=== PATIENT | female | born 1970 | race Hispanic/Latino ===

== ENCOUNTER 2016-12-19 10:16 | Emergency (ER) | payer OTHER ==
[~2016-12-19] VITALS: Ht 167.6 cm; Wt 113.9 kg
[~2016-12-19 10:16] MED LIST: ASCORBIC ACID500 M3 PO; COZAAR100 MG PO; ENDOCET 5-3251 EACH PO; HYZAAR 100-21 TABLET PO; LISINOPRIL-HCT1 EAC3 PO; MOTRIN600 MG PO; MOTRIN800 MG PO; TYLENOL EXTRA500 MG PO; VITAMIN E100 UNIT PO
[2016-12-19 11:34] LABS: HEMATOCRIT 42.6 % (36.0-46.0); MCH 28.3 PG (29.0-34.0); MCHC 33.8 G/DL (30.0-36.0); MCV 83.7 FL (83-99); MEAN PLAT.VOLUME 9.1 uM^3 (9.5-12.4); PLATELET COUNT 300 K/uL (156-360); RBC DIS.WIDTH-CV 13.2 % (11.8-14.6); RBC DIS.WIDTH-SD 40.7 % (39-53); RED BLOOD COUNT 5.09 M/uL (3.80-5.20); WHITE BLOOD COUNT 8.8 K/uL (4.1-10.2)
[2016-12-19 11:42] LABS: CHLORIDE 105 mEq/L (99-109); POTASSIUM 3.4 mEq/L (3.7-5.4); SODIUM 139 mEq/L (136-147)
[2016-12-19 11:44] LABS: GLUCOSE 96 mg/dL (70-99)
[2016-12-19 11:45] LABS: ANION GAP 8 MEQ/L (2-14)
[2016-12-19 11:48] LABS: GFR ESTIMATE (CALCULATED) > 59 mL/min/; UREA NITROGEN (BUN) 12 mg/dL (9-23)
[2016-12-19 11:54] LABS: TROP-I INTERPRETATION NEGATIVE; TROPONIN-I < 0.01 ng/mL (0.0-0.30)
[2016-12-19] MEDS ORDERED: VALIUM5 MG PO (13:27)
[2016-12-19] MEDS ORDERED: ULTRAM50 MG PO (13:27)
[2016-12-19 13:54] VITALS: BP 119/88
== END 2016-12-19 13:54 | disposition home or self-care (01) ==
LOC: EME 10:16
DX: T14.8 Other injury of unspecified body region (principal); S39.012A Strain of muscle, fascia and tendon of lower back, initial encounter; S16.1XXA Strain of muscle, fascia and tendon at neck level, initial encounter; W10.9XXA Fall (on) (from) unspecified stairs and steps, initial encounter; Y93.01 Activity, walking, marching and hiking; I10 Essential (primary) hypertension; Z87.891 Personal history of nicotine dependence
CPT/HCPCS: 71020; 72100; 73080; 73564; 80048; 84484; 85027; 93005; 99281; 99284